=== PATIENT | female | born 1990 | race Caucasian/White ===

== ENCOUNTER 2016-08-13 15:09 | Emergency (ER) | payer MEDICAID, OTHER ==
[~2016-08-13] VITALS: Ht 160 cm; Wt 54.4 kg
--- NOTE | 2016-08-13 15:34 | NUR ---
Patient discharged to home in stable conditon. Written and verbal after care instructions given to patient. Patient verbalizes understanding of instructions.
== END 2016-08-13 15:35 | disposition home or self-care (01) ==
LOC: ER 15:11
DX: J20.9 Acute bronchitis, unspecified (principal)
CPT/HCPCS: A4663

== ENCOUNTER 2016-08-14 01:50 | Emergency (ER) | payer MEDICAID ==
[~2016-08-14] VITALS: Ht 160 cm; Wt 54.4 kg
--- NOTE | 2016-08-14 02:25 | NUR ---
Patient walked in to ER c/o R eye swelling. She states that she presented to this ER yesterday and was discharged with [facility] for bronchitis. She states that the eye had symptoms then and she was informed that it should resolve without additional treatment. To room 3A.
--- NOTE | 2016-08-14 02:54 | NUR ---
Patient discharged to home in stable conditon. Written and verbal after care instructions given. Patient verbalizes understanding of instructions.
== END 2016-08-14 02:55 | disposition home or self-care (01) ==
LOC: ER 01:52
DX: H01.001 Unspecified blepharitis right upper eyelid (principal)
CPT/HCPCS: 99283; A4663

== ENCOUNTER 2016-12-17 07:07 | Emergency (ER) | payer MEDICAID ==
[~2016-12-17] VITALS: Ht 160 cm; Wt 59.0 kg
--- NOTE | 2016-12-17 07:28 | NUR ---
PT AWAITING MSE.
--- NOTE | 2016-12-17 08:05 | NUR ---
MSE COMPLETED, PT D/C'D HOME, ACI/RX X1 GIVEN. PT AMBULATED W/O DIFF/TOOK ALL BELONGINGS HOME.
[2016-12-17 08:20] VITALS: BP 119/66
== END 2016-12-17 08:05 | disposition home or self-care (01) ==
LOC: ER 07:07
DX: J20.9 Acute bronchitis, unspecified (principal); J02.9 Acute pharyngitis, unspecified; J45.909 Unspecified asthma, uncomplicated
CPT/HCPCS: 36415; 86403; 87070; A4663

== ENCOUNTER 2016-12-18 02:08 | Emergency (ER) | payer MEDICAID ==
[~2016-12-18] VITALS: Ht 160 cm; Wt 54.4 kg
--- NOTE | 2016-12-18 02:12 | NUR ---
PATIENT SEEN HERE YESTERDAY FOR SIMILAR COMPLAINT. WAS DX WITH BRONCHITIS. PATIENT CAME BACK FOR WORSENING PAIN OF BILATERAL EARS,THROAT AND BODYACHE... PT IS ALERT, ORIENTED X 4, NO RESP DISTRESS NOTED OR REPORTED UPON ASSESSMENT... MD AT BEDSIDE...
[2016-12-18] MEDS: IPRATROPIUM BROMIDE 0.5 MG/2.5 ML NEBU NEB ONE (02:45)
[2016-12-18] MEDS: ALBUTEROL SULFATE 2.5 MG/3 ML NEBU NEB ONE (02:45)
[2016-12-18] MEDS: IV NORMAL SALINE 1000 ML BAG IV ONE (02:50)
[2016-12-18 02:57] LABS: BASOPHILS # (AUTO) 0.1 K/uL (0.0-8.0); BASOPHILS % (AUTO) 1.2 % (0.0-2.0); EOSINOPHILS % (AUTO) 0.4 % (0.0-7.0); HEMATOCRIT 42.9 % (37-47); HEMOGLOBIN 14.6 G/DL (12.0-16.0); LYMPHOCYTES # (AUTO) 1.5 K/UL (0.8-4.8); LYMPHOCYTES % (AUTO) 16.3 % (20.5-51.5); MEAN CORPUSCULAR HEMOGLOBIN 30.4 UUG (27.0-31.0); MEAN CORPUSCULAR HGB CONC 34 g/dL (32.0-37.0); MEAN CORPUSCULAR VOLUME 89.1 FL (81.0-99.0); MONOCYTES # (AUTO) 0.9 K/UL (0.1-1.30); MONOCYTES % (AUTO) 10.3 % (0.0-11.0); NEUTROPHILS # (AUTO) 6.4 K/UL (1.8-8.9); NEUTROPHILS % (AUTO) 71.8 % (38.5-71.5); PLATELET COUNT (AUTO) 190 K/UL (150-450); RED BLOOD CELL COUNT(AUTO) 4.81 MIL/UL (4.2-5.4); WHITE BLOOD COUNT (AUTO) 8.9 K/UL (4.0-11.2)
[2016-12-18 03:03] LABS: CREATININE 0.8 mg/dL (0.6-1.3); POTASSIUM 3.7 mmol/L (3.5-5.1)
[2016-12-18] MEDS ORDERED: ALBUTEROL SULFATE 2.5 MG/3 ML NEBU ONE (03:03)
[2016-12-18] MEDS ORDERED: IPRATROPIUM BROMIDE 0.5 MG/2.5 ML NEBU ONE (03:03)
[2016-12-18] MEDS: KETOROLAC TROMETHAMINE 30 MG INJ IVP ONE (03:12)
[2016-12-18 03:13] LABS: BILIRUBIN,DIRECT 0.1 mg/dL (0.0-0.2); BILIRUBIN,TOTAL 0.5 mg/dL (0.2-1.0); TOTAL PROTEIN, SERUM 8.7 g/dL (6.4-8.2)
[2016-12-18] MEDS: CLINDAMYCIN PHOSPHATE IV 600 MG in IV DEXTROSE 5% 100 ML IV ONE (03:13)
[2016-12-18] MEDS: DEXAMETHASONE SOD PHOSPHATE 4 MG INJ IV ONE (03:13)
[2016-12-18] MEDS ORDERED: CLINDAMYCIN PHOSPHATE 600 MG/4 ML VIAL ONE (03:19)
[2016-12-18] MEDS ORDERED: DEXAMETHASONE SOD PHOSPHATE 10 MG INJ ONE (03:19)
[2016-12-18] MEDS ORDERED: KETOROLAC TROMETHAMINE 30 MG INJ ONE (03:19)
--- NOTE | 2016-12-18 04:40 | NUR ---
Patient discharged to home in stable conditon. Written and verbal after care instructions given. Patient verbalizes understanding of instructions. Pt walked out of ER unassisted with mother at side...
[2016-12-18 04:42] VITALS: BP 117/72
== END 2016-12-18 04:43 | disposition home or self-care (01) ==
LOC: ER 03:16
DX: J45.909 Unspecified asthma, uncomplicated (principal)
CPT/HCPCS: 36415; 70030-TC; 71010; 83605; 84703; 85025; 87040; A4663; J1100; J1885; J3490; J3590; J7030; J7060

== ENCOUNTER 2017-08-11 20:06 | Emergency (ER) | payer MEDICAID ==
[~2017-08-11] VITALS: Ht 162.6 cm; Wt 56.7 kg
[2017-08-11] MEDS ORDERED: DEXT118L43 PO (20:29)
[2017-08-11] MEDS ORDERED: PHEN-633 PO (20:29)
--- NOTE | 2017-08-11 20:30 | NUR ---
Dr. Smith at bedside for MSE.
--- NOTE | 2017-08-11 20:39 | NUR ---
Patient discharged to home in stable conditon. Written and verbal after care instructions given. Patient verbalizes understanding of instructions. Patient ambulated out of ER with steady gait, no acute signs of distress, VSS, all belongings taken.
[2017-08-11 20:40] VITALS: BP 125/77
== END 2017-08-11 20:42 | disposition home or self-care (01) ==
LOC: ER 20:14
DX: J32.9 Chronic sinusitis, unspecified (principal); J45.909 Unspecified asthma, uncomplicated; Z90.89 Acquired absence of other organs; Z79.899 Other long term (current) drug therapy
CPT/HCPCS: A4663

== ENCOUNTER 2017-08-17 18:09 | Emergency (ER) | payer MEDICAID ==
[~2017-08-17] VITALS: Ht 162.6 cm; Wt 56.7 kg
[~2017-08-17 18:09] MED LIST: DEXT118L43 PO; PHEN-633 PO
[2017-08-17] MEDS ORDERED: AMOX500C2 PO (18:16)
--- NOTE | 2017-08-17 18:57 | NUR ---
Patient discharged to home in stable conditon. Written and verbal after care instructions given to patient. Patient verbalizes understanding of instructions. Patient left ER with steady gait.
== END 2017-08-17 18:58 | disposition home or self-care (01) ==
LOC: ER 18:10
DX: J32.9 Chronic sinusitis, unspecified (principal); J45.909 Unspecified asthma, uncomplicated; Z88.5 Allergy status to narcotic agent; Z90.49 Acquired absence of other specified parts of digestive tract; Z79.2 Long term (current) use of antibiotics; Z79.899 Other long term (current) drug therapy
CPT/HCPCS: A4663

== ENCOUNTER 2018-01-14 11:11 | Emergency (ER) | payer OTHER, MEDICAID ==
[~2018-01-14] VITALS: Ht 162.6 cm; Wt 56.7 kg
[~2018-01-14 11:11] MED LIST changes: +AMOX500C2 PO
[2018-01-14] MEDS: IV NORMAL SALINE 1000 ML BAG IV ONE (11:38)
[2018-01-14] MEDS: CIPROFLOXACIN HCL 250 MG TABLET PO ONE (11:41)
[2018-01-14] MEDS: METRONIDAZOLE 500 MG TABLET PO ONE (11:41)
[2018-01-14] MEDS ORDERED: METRONIDAZOLE 500 MG TABLET ONE (11:45)
[2018-01-14] MEDS ORDERED: CIPROFLOXACIN HCL 250 MG TABLET ONE (11:45)
[2018-01-14] MEDS: KETOROLAC TROMETHAMINE 15 MG INJ IV ONE (11:45)
[2018-01-14] MEDS: METOCLOPRAMIDE HCL 10 MG/2 ML VIAL IV ONE (11:47)
[2018-01-14] MEDS ORDERED: KETOROLAC TROMETHAMINE 15 MG INJ ONE (11:49)
[2018-01-14] MEDS ORDERED: METOCLOPRAMIDE HCL 10 MG/2 ML VIAL ONE (11:49)
[2018-01-14 11:54] LABS: BASOPHILS % (AUTO) 0.8 % (0.0-2.0); EOSINOPHILS # (AUTO) 0.1 K/uL (0.0-0.7); EOSINOPHILS % (AUTO) 1.8 % (0.0-7.0); HEMATOCRIT 41.3 % (31.2-41.9); HEMOGLOBIN 14.4 g/dL (10.9-14.3); LYMPHOCYTES # (AUTO) 2.1 K/uL (20.0-40.0); LYMPHOCYTES % (AUTO) 39.4 % (20.5-51.5); MEAN CORPUSCULAR HEMOGLOBIN 31.8 uug (24.7-32.8); MEAN CORPUSCULAR HGB CONC 35 g/dL (32.3-35.6); MEAN CORPUSCULAR VOLUME 91.5 fL (75.5-95.3); MONOCYTES # (AUTO) 0.6 K/uL (2.0-10.0); MONOCYTES % (AUTO) 11.8 % (0.0-11.0); NEUTROPHILS # (AUTO) 2.4 K/uL (1.8-8.9); NEUTROPHILS % (AUTO) 46.2 % (38.5-71.5); PLATELET COUNT (AUTO) 234 K/uL (179-408); RED BLOOD CELL COUNT(AUTO) 4.51 MIL/uL (3.63-4.92); WHITE BLOOD COUNT (AUTO) 5.3 K/uL (3.8-11.8)
[2018-01-14 11:59] LABS: CREATININE 0.7 mg/dL (0.6-1.3); POTASSIUM 4.7 mmol/L (3.5-5.1)
[2018-01-14 12:04] LABS: BILIRUBIN,DIRECT 0.1 mg/dL (0.0-0.2); BILIRUBIN,TOTAL 0.7 mg/dL (0.2-1.0); TOTAL PROTEIN, SERUM 7.8 g/dL (6.4-8.2)
--- NOTE | 2018-01-14 12:24 | NUR ---
Patient is resting comfortably on gurney with eyes closed, no vomiting or diarrhea episodes since arrival to ER
--- NOTE | 2018-01-14 12:49 | NUR ---
IV removed. Catheter intact and site benign. Pressure and 4x4 gauze applied to site. No bleeding noted. Patient discharged to home in stable conditon & brisk steady gait. Written and verbal after care instructions given to patient. Patient verbalizes understanding of instructions.
== END 2018-01-14 12:51 | disposition home or self-care (01) ==
LOC: ER 11:11
DX: T62.8X1A Toxic effect of other specified noxious substances eaten as food, accidental (unintentional), initial encounter (principal); J45.909 Unspecified asthma, uncomplicated; Z90.89 Acquired absence of other organs; Y92.89 Other specified places as the place of occurrence of the external cause
CPT/HCPCS: 36415; 70030-TC; 83690; 84703; 85025; 85730; A4663; J1885; J2765; J7030

== ENCOUNTER 2018-09-29 13:44 | Emergency (ER) | payer MEDICAID ==
[~2018-09-29] VITALS: Ht 162.6 cm; Wt 56.7 kg
--- NOTE | 2018-09-29 13:53 | NUR ---
DR ALEMAN AT THE BEDSIDE FOR MSE.
--- NOTE | 2018-09-29 14:02 | NUR ---
Patient discharged to home in stable conditon. Written and verbal after care instructions given. Patient verbalizes understanding of instructions.
[2018-09-29 14:03] VITALS: BP 115/69
== END 2018-09-29 14:03 | disposition home or self-care (01) ==
LOC: ER 13:44
DX: J30.9 Allergic rhinitis, unspecified (principal); R09.82 Postnasal drip; Z79.899 Other long term (current) drug therapy; Z79.2 Long term (current) use of antibiotics
CPT/HCPCS: A4663